=== PATIENT | female | born 1980 ===

== ENCOUNTER 2020-12-16 19:26 | Emergency (ER) | payer BC, OTHER ==
--- NOTE | 2020-12-16 19:53 | EDM.PDOC ---
ED HPI GENERAL MEDICAL PROBLEM - General Chief Complaint: Lower Extremity Injury/Pain Stated Complaint: SWELLING AND CRAMPING IN CALF Time Seen by Provider: 12/16/20 19:29 Source of Information: Reports: Patient History Limitations: Reports: No Limitations - History of Present Illness INITIAL COMMENTS - FREE TEXT/NARRATIVE: HISTORY AND PHYSICAL: History of present illness: Patient is a 40-year-old female who presents to the emergency room with complaints of right posterior calf pain. She states on Wednesday she was running when she started to cramp and the calf region. Initially she was concerned that she might have an Achilles tendon tear as she has had problems with her left side, resulting in surgery x2. She does have good flexion and extension of the lower extremity, states her concern now is a blood clot. She is not on any type of hormone replacement. No recent long extended travel. No history of blood clots. Review of systems: As per history of present illness and below otherwise all systems reviewed and negative. Past medical history: As per history of present illness and as reviewed below otherwise noncontributory. Surgical history: As per history of present illness and as reviewed below otherwise noncontributory. Social history: See social history for further information Family history: As per history of present illness and as reviewed below otherwise noncontributory. Physical exam: General: Well developed and well nourished. Alert and orientated x 3. Nontoxic in appearance and in no acute distress. Vital signs are stable and have been reviewed by me. Nursing notes were reviewed. HEENT: Atraumatic, normocephalic, pupils equal and reactive bilaterally, negative for conjunctival pallor or scleral icterus, mucous membranes moist, TMs normal bilaterally, throat clear, neck supple, nontender, trachea midline. No drooling or trismus noted. No meningeal signs. No hot potato voice noted. Lungs: Clear to auscultation bilaterally. No wheezes, rales, or rhonchi. Chest nontender. Normal work of breathing, no accessory muscles used. Heart: S1S2, regular rate and rhythm without overt murmur, gallops, or rubs. No JVD. No peripheral edema Abdomen: Soft, nondistended, nontender. Normoactive bowel sounds. Negative for masses or costovertebral tenderness. Skin: Intact, warm, dry. No lesions or rashes noted. Hematologic: No petechiae or purpra. Mucosa appropriate color and normal nail bed color and refill. Extremities: Atraumatic, moves all extremities per self without difficulty or deficits, negative for cords. Mild to moderate pain with palpation of the right calf. Mild swelling noted. No obvious redness or skin disruption. No Achilles injury noted. Strong pedal and pretibial pulses. +CMS. Neurovascular unremarkable. Neuro: Awake, alert, oriented. Cranial nerves II through XII unremarkable. Cerebellum unremarkable. Motor and sensory unremarkable throughout. Exam nonfocal. Psychiatric: Mood and affect are appropriate. Normal thought process. Answering questions appropriately. Notes: *This patient was seen and evaluated during the 2019 SARS-CoV-2 novel coronavirus pandemic period. Community viral transmission is ongoing at time of this encounter and the emergency department is operating under pandemic response procedures. Patient's potassium is slightly lower, due to her cramping sensation will give her K-Dur. Venous US shows no evidence of DVT. I have talked with the patient about today's findings, in addition to providing specific details for plan of care. Reassessment at the time of disposition demonstrates that the patient is in no acute distress. The patient is stable for discharge, counseling was provided and we discussed in great detail signs and symptoms that would prompt them to return to the Emergency Department. Medication, follow up and supportive care measures were reviewed and discussed. Voices understanding and is agreeable to plan of care. Denies any further questions or concerns at this time. Diagnostics: CBC, CMP, Venous US Therapeutics: K-Dur Prescription: K-Dur (x 4 days), Diclofenac, Tramadol Impression: Calf Pain Plan: 1. You were evaluated today on an emergent basis. Your ultrasound shows no evidence of blood clot. Lab work is essentially normal, potassium is slightly lower than normal. If you continue to have pain, may want to consider further imaging (which would be done by primary care or Orthopedics). 2. You can alternate Tylenol and ibuprofen as needed for pain and fever management. 3. We encourage you to follow up with your primary care provider and/or recommended specialist in the next few days for re-evaluation and further care/management. 4. If your symptoms should worsen, new symptoms develop or any of the signs and symptoms we discussed should arise please return to the emergency room or call 911 (if needed). Definitive disposition and diagnosis as appropriate pending reevaluation and review of above. right calf Pain Score (Numeric/FACES): 3 - Related Data Allergies Allergy/AdvReac Type Severity Reaction Status Date / Time No Known Allergies Allergy Verified 12/16/20 19:53 Home Meds: Home Meds Levothyroxine 25 mcg PO ACBREAKFAST 12/16/20 [History] Potassium Chloride [Klor-Con M20] 20 meq PO BID 4 Days #8 tab.er 12/16/20 [Rx] Past Medical History - Past Health History Medical/Surgical History: Denies Medical/Surgical History Review of Systems - Review of Systems Review Of Systems: Comprehensive ROS is negative, except as noted in HPI. ED EXAM, GENERAL - Physical Exam Exam: See Below (See dictation) Course - Vital Signs Last Recorded V/S: Last Vital Signs Temp 97.6 F 12/16/20 19:45 Pulse 89 12/16/20 19:45 Resp 18 12/16/20 19:45 BP 159/95 H 12/16/20 19:45 Pulse Ox 99 12/16/20 19:45 - Orders/Labs/Meds Orders: Active Orders 24 hr Category Date Time Status Venous Doppler Lwr Ext Rt [US] Stat Exams 12/16/20 20:29 Taken Labs: Laboratory Tests 12/16/20 12/16/20 Range/Units 19:58 19:58 WBC 5.52 (4.0-11.0) K/uL RBC 4.07 L (4.30-5.90) M/uL Hgb 13.0 (12.0-16.0) g/dL Hct 38.2 (36.0-46.0) % MCV 93.9 (80.0-98.0) fL MCH 31.9 (27.0-32.0) pg MCHC 34.0 (31.0-37.0) g/dL RDW Std Deviation 40.2 (28.0-62.0) fl RDW Coeff of [place] 12 (11.0-15.0) % Plt Count 222 (150-400) K/uL MPV 10.20 (7.40-12.00) fL Neut % (Auto) 60.3 (48.0-80.0) % Lymph % (Auto) 29.9 (16.0-40.0) % Wright % (Auto) 6.5 (0.0-15.0) % Eos % (Auto) 3.1 (0.0-7.0) % Baso % (Auto) 0.2 (0.0-1.5) % Neut # (Auto) 3.3 (1.4-5.7) K/uL Lymph # (Auto) 1.7 (0.6-2.4) K/uL Wright # (Auto) 0.4 (0.0-0.8) K/uL Eos # (Auto) 0.2 (0.0-0.7) K/uL Baso # (Auto) 0.0 (0.0-0.1) K/uL Nucleated RBC % 0.0 /100WBC Nucleated RBCs # 0 K/uL Sodium 140 (136-145) mmol/L Potassium 3.3 L (3.5-5.1) mmol/L Chloride 103 (98-107) mmol/L Carbon Dioxide 27.5 (21.0-32.0) mmol/L BUN 10 (7.0-18.0) mg/dL Creatinine 1.0 (0.6-1.0) mg/dL Est Cr Clr Drug Dosing 76.95 mL/min Estimated GFR (MDRD) > 60.0 ml/min Glucose 104 (74-106) mg/dL Calcium 8.7 (8.5-10.1) mg/dL Total Bilirubin 0.2 (0.2-1.0) mg/dL AST 18 (15-37) IU/L ALT 31 (14-63) IU/L Alkaline Phosphatase 72 (46-116) U/L Total Protein 7.7 (6.4-8.2) g/dL Albumin 3.9 (3.4-5.0) g/dL Globulin 3.8 (2.6-4.0) g/dL Albumin/Globulin Ratio 1.0 (0.9-1.6) Meds: Medications Discontinued Medications Generic Name Dose Route Start Last Admin Trade Name Freq PRN Reason Stop Dose Admin Potassium Chloride 40 meq 12/16/20 21:29 Potassium Chloride 20 Meq Tab.Er PO 12/16/20 21:30 ONETIME ONE Tramadol HCl 50 mg 12/16/20 21:49 Tramadol 50 Mg Tab PO 12/16/20 21:50 ONETIME ONE Departure - Departure Time of Disposition: 21:52 Disposition: Home, Self-Care 01 Clinical Impression: Right calf pain - Discharge Information Prescriptions: Potassium Chloride [Klor-Con M20] 20 meq PO BID 4 Days #8 tab.er Instructions: Muscle Strain, [id number] Referrals: PCP,Not In Area [Primary Care Provider] - Forms: ED Department Discharge Additional Instructions: The following information is given to patients seen in the emergency department who are being discharged to home. This information is to outline your options for follow-up care. We provide all patients seen in our emergency department with a follow-up referral. The need for follow-up, as well as the timing and circumstances, are variable depending upon the specifics of your emergency department visit. If you don't have a primary care physician on staff, we will provide you with a referral. We always advise you to contact your personal physician following an emergency department visit to inform them of the circumstance of the visit and for follow-up with them and/or the need for any referrals to a consulting specialist. The emergency department will also refer you to a specialist when appropriate. This referral assures that you have the opportunity for follow-up care with a specialist. All of these measure are taken in an effort to provide you with optimal care, which includes your follow-up. Under all circumstances we always encourage you to contact your private physician who remains a resource for coordinating your care. When calling for follow-up care, please make the office aware that this follow-up is from your recent emergency room visit. If for any reason you are refused follow-up, please contact the [facility] Emergency Department at and asked to speak to the emergency department charge nurse. [facility] [address] [place] [id number] [address] [id number] Thank you for choosing the [facility] emergency department in [place] for your medical needs today. It was a pleasure caring for you. Today you were seen in the emergency department for calf pain 1. You were evaluated today on an emergent basis. Your ultrasound shows no evidence of blood clot. Lab work is essentially normal, potassium is slightly lower than normal. If you continue to have pain, may want to consider further imaging (which would be done by primary care or Orthopedics). 2. You can alternate Tylenol and ibuprofen as needed for pain and fever management. 3. We encourage you to follow up with your primary care provider and/or recommended specialist in the next few days for re-evaluation and further care/management. 4. If your symptoms should worsen, new symptoms develop or any of the signs and symptoms we discussed should arise please return to the emergency room or call 911 (if needed). Sepsis Event Note (ED) - Focused Exam Vital Signs: Vital Signs Temp Pulse Resp BP Pulse Ox 12/16/20 19:45 97.6 F 89 18 159/95 H 99 - My Orders Last 24 Hours: My Active Orders 12/16/20 20:29 Venous Doppler Lwr Ext Rt [US] Stat - Assessment/Plan Last 24 Hours: My Active Orders 12/16/20 20:29 Venous Doppler Lwr Ext Rt [US] Stat
[2020-12-16 20:24] LABS: BLOOD UREA NITROGEN,BUN 10 mg/dL (7.0-18.0); CARBON DIOXIDE,CO2 27.5 mmol/L (21.0-32.0); CHLORIDE,CL 103 mmol/L (98-107); GLUCOSE RANDOM 104 mg/dL (74-106); POTASSIUM,K 3.3 mmol/L (3.5-5.1); SODIUM,NA 140 mmol/L (136-145)
[2020-12-16] MEDS ORDERED: Potassium Chloride 20 MEQ Tab.ER PO ONE (21:29)
[2020-12-16] MEDS ORDERED: traMADol 50 MG Tab PO ONE (21:49)
--- NOTE | 2020-12-16 21:53 | US ---
INDICATION: Right lower extremity redness and calf pain TECHNIQUE: Ultrasound venous duplex lower right extremity. Compression venous exam was performed using gardiner-scale, color Doppler, and spectral Doppler imaging. COMPARISON: None. FINDINGS: Sonographic imaging demonstrates the right common femoral, deep femoral, superficial femoral, popliteal, posterior tibial, anterior tibial, greater saphenous, and the contralateral left common femoral veins to be fully compressible with normal color Doppler blood flow. Remainder negative. IMPRESSION: Normal right lower extremity venous ultrasound without evidence of DVT. Dictated by Perico Baker MD @ 12/16/2020 9:51:[address] Perico Baker @ Dec 16 2020 9:51PM
[2020-12-16 22:53] VITALS: BP 119/88; PULSE 76
== END 2020-12-16 22:05 | disposition home or self-care (01) ==
LOC: MW.ED 19:26
DX: M79.661 Pain in right lower leg (principal); Z79.899 Other long term (current) drug therapy
CPT/HCPCS: 36415; 80053; 85025; 93971; 99284; A9270; 99283